=== PATIENT | male | born 1955 | race Caucasian/White ===

== ENCOUNTER 2023-02-18 05:28 | Day surgery (SDC) | payer MEDICARE, OTHER ==
[2023-02-17 12:22] VITALS: BMI 32.5
[2023-02-18] MEDS ORDERED: Protamine Sulfate 50 MG/5 ML VIAL ONE (06:31)
[2023-02-18] MEDS ORDERED: Heparin 10,000 UNITS/ 10 ML VIAL ONE ×2 (06:32→10:15)
[2023-02-18] MEDS ORDERED: Heparin 25,000 units/D5W 500 ML ONE (06:32)
[2023-02-18] MEDS ORDERED: fentaNYL 50 mcg/mL 1 mL Vial ONE ×2 (08:27→10:28)
[2023-02-18] MEDS ORDERED: NEOSTIGMINE 3 MG/3 ML SYR 3 MG/3 ML SYRINGE ONE (08:32)
[2023-02-18] MEDS ORDERED: Ondansetron PF 4 MG/2 ML Vial ONE (08:32)
[2023-02-18] MEDS ORDERED: Lidocaine 1% PF 5 ML VIAL ONE (08:32)
[2023-02-18] MEDS ORDERED: PROPOFOL 200 MG/20 ML VIAL ONE (08:32)
[2023-02-18] MEDS ORDERED: Glycopyrrolate 0.2 MG/ML 5 ML SYRINGE ONE (08:32)
[2023-02-18] MEDS ORDERED: PHENYLEPHRINE-NS 100 MCG/ML 10 ML SYRINGE ONE (08:32)
[2023-02-18] MEDS ORDERED: Rocuronium Bromide 10 MG/ML (10ML VIAL) ONE (08:32)
[2023-02-18] MEDS ORDERED: Vasopressin 20 UNITS/ML VIAL ONE (08:55)
[2023-02-18] MEDS ORDERED: EPINEPHrine 1 MG/ML AMP ONE (09:34)
== END 2023-02-18 14:17 | disposition home or self-care (01) ==
LOC: SDC 05:28
PROVIDERS: ATTEND Internal Medicine Cardiovascular Disease
PROC: 02583ZZ Destruction of Conduction Mechanism, Percutaneous Approach (ICD-10-PCS; principal; 2023-02-18)
PROC: 02K83ZZ Map Conduction Mechanism, Percutaneous Approach (ICD-10-PCS; 2023-02-18)
DX: I48.0 Paroxysmal atrial fibrillation (principal); I48.3 Typical atrial flutter; I49.5 Sick sinus syndrome; E11.42 Type 2 diabetes mellitus with diabetic polyneuropathy; G43.909 Migraine, unspecified, not intractable, without status migrainosus; G47.33 Obstructive sleep apnea (adult) (pediatric); I10 Essential (primary) hypertension; D50.9 Iron deficiency anemia, unspecified; K25.5 Chronic or unspecified gastric ulcer with perforation; Z98.890 Other specified postprocedural states; Z96.652 Presence of left artificial knee joint; Z98.84 Bariatric surgery status; Z90.89 Acquired absence of other organs; Z79.01 Long term (current) use of anticoagulants; Z79.890 Hormone replacement therapy; Z95.818 Presence of other cardiac implants and grafts; Z92.89 Personal history of other medical treatment; Z79.84 Long term (current) use of oral hypoglycemic drugs; Z79.899 Other long term (current) drug therapy
CPT/HCPCS: 85347 ×2; 93005; 93312; 93655; 93656; 93657; C1732; C1759; C1760; C1769; C1894 ×5; C2630; J3010; J0171; J1644; J2405; J2704; J2720

== ENCOUNTER → 2023-04-21 | Day surgery (SDC) | payer MEDICARE, OTHER ==
[2023-04-20 10:42] VITALS: BMI 33.7
[~2023-04-21] MED LIST: PROPOFOL 200 MG/20 ML VIAL ONE
[2023-04-21 07:27] LABS: #Eosinphils 0.3 thou/uL (0.0-0.7); #Monocytes 0.6 thou/uL (0.11-0.59); #Neutrophils 3.8 thou/uL (1.40-6.50); %Basophils 0.6 % (0.0-1.0); %Monocytes 8.7 % (0.0-10.0); %Neutrophils 54.4 % (42.0-75.0); Hematocrit 40.6 % (42.0-52.0); Hemoglobin 12.6 g/dL (14.0-18.0); Mean Corpuscular Hemoglobin 31.9 pg (27.0-31.0); Mean Corpuscular Volume 102.8 fl (78.0-98.0); Mean Platelet Volume 11.9 fL (7.4-10.4); Platelet Count 174 10x3/uL (130-400); RBC Distribution Width 13.1 % (11.5-14.5); Red Blood Cell (RBC) Count 3.95 mill/uL (4.70-6.10)
[2023-04-21 07:47] LABS: INR-International Normal Ratio 1.1; PTT 28.8 sec (22.9-36.1)
[2023-04-21 08:47] LABS: Chloride 109 mmol/L (98-107); Potassium 3.9 mmol/L (3.5-5.1); Sodium 142 mmol/L (136-145)
[2023-04-21 08:48] LABS: Calcium 8.7 mg/dL (7.8-10.44); Glucose 122 mg/dL (80-115)
[2023-04-21 08:50] LABS: Anion Gap 11 mmol/L (10-20); Carbon Dioxide 26 mmol/L (23-31)
[2023-04-21 08:52] LABS: Calc. Creatinine Clearance 79 mL/min (70-130); Estimated GFR 50
[2023-04-21 08:53] LABS: BUN (Urea Nitrogen) 29 mg/dL (8.4-25.7)
== END ==
LOC: SDC 06:33
PROVIDERS: ATTEND Internal Medicine Cardiovascular Disease
PROC: 5A2204Z Restoration of Cardiac Rhythm, Single (ICD-10-PCS; principal; 2023-04-21)
DX: I48.4 Atypical atrial flutter (principal); I48.0 Paroxysmal atrial fibrillation
CPT/HCPCS: 80048; 85025; 85610; 85730; 92960; J2704

== ENCOUNTER → 2023-07-22 | Day surgery (SDC) | payer MEDICARE, OTHER ==
[~2023-07-22] MED LIST changes: +CEFAZOLIN 2 GM VIAL ONE; +Dexamethasone 20 MG/5 ML VIAL ONE; +Glycopyrrolate 0.2 MG/ML 5 ML SYRINGE ONE; +Heparin 10,000 UNITS/ 10 ML VIAL ONE; +Heparin 25,000 units/D5W 500 ML ONE; +Iopamidol 370 76% 100 ML VIAL ONE; +Lidocaine 1% PF 5 ML VIAL ONE; +Metoclopramide HCl 10 MG (2 mL) VIAL ONE; +NEOSTIGMINE 3 MG/3 ML SYR 3 MG/3 ML SYRINGE ONE; +Ondansetron PF 4 MG/2 ML Vial ONE; +PHENYLEPHRINE-NS 100 MCG/ML 10 ML SYRINGE ONE; +Protamine Sulfate 50 MG/5 ML VIAL ONE; +Rocuronium Bromide 10 MG/ML (10ML VIAL) ONE; +SUCCINYLCHOLINE/SOD CL,ISO/PF 200 MG/10 ML SYRINGE FS ONE
== END ==
LOC: SDC 09:47
PROVIDERS: ATTEND Internal Medicine Cardiovascular Disease
PROC: 4A023FZ Measurement of Cardiac Rhythm, Percutaneous Approach (ICD-10-PCS; principal; 2023-07-22)
PROC: 02583ZZ Destruction of Conduction Mechanism, Percutaneous Approach (ICD-10-PCS; 2023-07-22)
PROC: 02K83ZZ Map Conduction Mechanism, Percutaneous Approach (ICD-10-PCS; 2023-07-22)
DX: I48.0 Paroxysmal atrial fibrillation (principal); I48.4 Atypical atrial flutter; I49.5 Sick sinus syndrome; I10 Essential (primary) hypertension; E11.40 Type 2 diabetes mellitus with diabetic neuropathy, unspecified; G47.33 Obstructive sleep apnea (adult) (pediatric); Z79.890 Hormone replacement therapy; Z90.89 Acquired absence of other organs; Z79.899 Other long term (current) drug therapy; Z79.01 Long term (current) use of anticoagulants; Z96.652 Presence of left artificial knee joint; Z79.84 Long term (current) use of oral hypoglycemic drugs
CPT/HCPCS: 85347 ×2; 93005; 93656; 93657; C1725; C1726; C1732; C1760; C1769 ×3; C1893; C1894 ×5; C2630; C1759; J1100; J1644; J2405; J2704; J2720; J2765; Q9967